=== PATIENT | male | born 1980 | race Hispanic/Latino ===

== ENCOUNTER 2021-05-09 21:49 | Emergency (ER) | payer OTHER ==
[~2021-05-09] VITALS: Ht 175.3 cm; Wt 90.7 kg
[2021-05-09 22:16] VITALS: BP 141/76
[2021-05-09] MEDS ORDERED: FLUT16H NASAL (23:26)
[2021-05-09] MEDS ORDERED: ACET-66 PO (23:26)
[2021-05-09] MEDS ORDERED: LORA10TA7 PO (23:26)
[2021-05-09] MEDS ORDERED: MV-M1TAB20 PO (23:26)
== END 2021-05-09 23:41 | disposition home or self-care (01) ==
LOC: EDH 21:49
DX: U07.1 COVID-19 (principal)
CPT/HCPCS: 87635; 87804 ×2; 87880; 99283; C9803

== ENCOUNTER 2023-12-17 09:54 | Emergency (ER) | payer OTHER ==
[~2023-12-17] VITALS: Ht 175.3 cm; Wt 90.7 kg
[~2023-12-17 09:54] MED LIST: ACET-66 PO; FLUT16H NASAL; LORA10TA7 PO; MV-M1TAB20 PO
[2023-12-17 10:48] LABS: RAPID GROUP A STREP negative (NEGATIVE)
[2023-12-17 11:00] LABS: INFLUENZA TYPE A Negative For Type A (NEGATIVE); INFLUENZA TYPE B Negative For Type B (NEGATIVE)
[2023-12-17 11:03] LABS: SARS-CoV-2, RNA, NAAT POSITIVE SARS CoV-2 (NEGATIVE)
[2023-12-17 11:21] VITALS: TEMP 99
[2023-12-17] MEDS: PHENYLEPHRINE HCL NASAL ONE (11:21)
[2023-12-17] MEDS: ACETAMINOPHEN 325 MG TAB PO ONE (11:21)
[2023-12-17 11:42] VITALS: BP 126/82; PULSE 80; RESP 20; O2SAT 99
== END 2023-12-17 12:09 | disposition home or self-care (01) ==
LOC: EDH 09:54
DX: U07.1 COVID-19 (principal); M19.90 Unspecified osteoarthritis, unspecified site; G89.29 Other chronic pain; M54.9 Dorsalgia, unspecified; Z79.899 Other long term (current) drug therapy
CPT/HCPCS: 87635; 87804; 87880